=== PATIENT | female | born 1980 | race Caucasian/White ===

== ENCOUNTER 2018-12-04 14:56 | Observation (INO) | payer OTHER ==
[2018-12-04] MEDS ORDERED: NS 0.9% 1000 ML** 1,000 ML IV ONE (15:24)
--- NOTE | 2018-12-04 15:24 | ED ---
Neurological HPI - HPI Summary HPI Summary: This pt is a 37 y/o female presenting to [facility] c/o slurred speech. Pt reports she woke up feeling "weird" with no energy, feeling fatigued, and very drowsy. She notes she had gait disturbance, couldn't walk straight without holding on to things. Per nurse's note, pt didn't fall asleep until 0400 today and she woke up at 1220. She notes rare alcohol use. Pt reports taking her medications as usual which includes, Adderall, Alprazolam , lithium carbonate, fluoxetine, Seroquel. She last took Alprazolam last night. - History of Current Complaint Chief Complaint: EDWeakness Stated Complaint: BARELY COHERANT/CONFUSED PER PT BROTHER Hx Obtained From: Patient Onset/Duration: Started hours ago, Still Present Timing: Sudden Onset Current Severity: Moderate Pain Intensity: 0 - denies pain Pain Scale Used: 0-10 Numeric Character: Other: - slurred speech, gait disturbance, no energy Aggravating: Nothing Alleviating: Nothing Associated Signs and Symptoms: Positive: Unsteady Gait, Impaired Speech. Negative: Loss of Consciousness, Fever, Chest Pain, Shortness of Breath - Allergy/Home Medications Allergies/Adverse Reactions: Allergies Allergy/AdvReac Type Severity Reaction Status Date / Time bupropion [From Wellbutrin] Allergy Unknown Verified 12/04/18 15:06 Reaction Details deet Allergy Rash Uncoded 12/04/18 15:06 Home Medications: Home Medications ALPRAZolam [Alprazolam ER] 2 mg PO BID 12/04/18 [History Confirmed 12/04/18] Amphetamine MIXED SALTS TAB* [Adderall TAB*] 30 mg PO DAILY 12/04/18 [History Confirmed 12/04/18] Fluoxetine (Nf) Cap [Fluoxetine HCl] 80 mg PO DAILY 12/04/18 [History Confirmed 12/04/18] [place] Carbonate ER (NF) [[place] Carbonate ER] 300 mg PO BID 12/04/18 [ History Confirmed 12/04/18] QUEtiapine TAB* [Seroquel 100 MG *] 100 mg PO BEDTIME 12/04/18 [History Confirmed 12/04/18] PMH/Surg Hx/FS Hx/Imm Hx Endocrine/Hematology History: Denies: Hx Diabetes Cardiovascular History: Denies: Hx Hypertension Respiratory History: Reports: Hx Asthma Psychiatric History: Reports: Hx Anxiety, Hx Attention Deficit Hyperactivity Disorder Infectious Disease History: No Infectious Disease History: Denies: Traveled Outside the [place] in Last 30 Days - Family History Known Family History: Negative: Cardiac Disease, Hypertension, Diabetes - Social History Alcohol Use: Rare Substance Use Type: Reports: None Smoking Status (MU): Never Smoked Tobacco Review of Systems Positive: Fatigue. Negative: Fever, Chills Cardiovascular: Negative Respiratory: Negative Gastrointestinal: Negative Neurological: Other - POSITIVE: slurred speech, gait disturbance, drowsy All Other Systems Reviewed And Are Negative: Yes Physical Exam - Summary Physical Exam Summary: VITAL SIGNS: Reviewed. GENERAL: Patient is a well-developed and nourished female who is lying comfortable in the stretcher. Patient is not in any acute respiratory distress. HEAD AND FACE: No signs of trauma. No ecchymosis, hematomas or skull depressions. No sinus tenderness. EYES: PERRLA, EOMI x 2, No injected conjunctiva, no nystagmus. EARS: Hearing grossly intact. Ear canals and tympanic membranes are within normal limits. MOUTH: Oropharynx within normal limits. NECK: Supple, trachea is midline, no adenopathy, no JVD, no carotid bruit, no c- spine tenderness, neck with full ROM. CHEST: Symmetric, no tenderness at palpation LUNGS: Clear to auscultation bilaterally. No wheezing or crackles. CVS: Regular rate and rhythm, S1 and S2 present, no murmurs or gallops appreciated. ABDOMEN: Soft, non-tender. No signs of distention. No rebound no guarding, and no masses palpated. Bowel sounds are normal. EXTREMITIES: FROM in all major joints, no edema, no cyanosis or clubbing. NEURO: Alert and oriented x 3. Slurred speech. NIH is 1. SKIN: Dry and warm GCS: 15 Triage Information Reviewed: Yes Vital Signs On Initial Exam: Initial Vitals Temp Pulse Resp BP Pulse Ox 98.8 F 89 16 107/70 98 12/04/18 14:58 12/04/18 14:58 12/04/18 14:58 12/04/18 14:58 12/04/18 14:58 Vital Signs Reviewed: Yes Procedures - Sedation Patient Received Moderate/Deep Sedation with Procedure: No Diagnostics - Vital Signs Vital Signs Temp Pulse Resp BP Pulse Ox 12/04/18 14:58 98.8 F 89 16 107/70 98 - Laboratory Result Diagrams: 12/05/18 06:45 12/05/18 06:45 Lab Statement: Any lab studies that have been ordered have been reviewed, and results considered in the medical decision making process. - CT Brain CT CT Interpretation Completed By: Radiologist Summary of CT Findings: IMPRESSION: No evidence for gross acute infarct, mass effect or hemorrhage. Dr. Lara has reviewed this report. Head CTA CT Interpretation Completed By: Radiologist Summary of CT Findings: IMPRESSION: 1. Motion degraded exam with no large vessel occlusion or significant stenosis. 2. Biapical pulmonary consolidation and groundglass opacification. This could be better evaluated by dedicated chest CT. Correlate with clinical signs of pneumonia. 3. A disc osteophyte complex results in at least moderate spinal canal stenosis at C5-C6. Dr. Lara has reviewed this report. - EKG 15:10 Cardiac Rate: NL - at 78 bpm EKG Rhythm: Sinus Rhythm Summary of EKG Findings: An EKG at 15:10 shows normal sinus rhythm at [address] elevations. NIH Scale - NIH Scale Level of Consciousness: Alert/Keenly Responsive Ask Patient the Month and His/Her Age: Both Correct Ask Pt to Open/Close Eyes and Textile Machine Operator/Release Non-Paretic Hand: Both Correctly Best Gaze (Only Horizontal Eye Movement): Normal Visual Field Testing: No Visual Loss Facial Paresis-Pt to Smile & Close Eyes or Grimace Symmetry: Normal/Symmetrical Motor Function - Right Arm: No Drift-Holds 10 Seconds Motor Function - Left Arm: No Drift-Holds 10 Seconds Motor Function - Right Leg: No Drift-Holds 10 Seconds Motor Function - Left Leg: No Drift-Holds 10 Seconds Limb Ataxia-Must be out of Proportion to Weakness Present: Absent Sensory (Use Pinprick to Test Arms/Legs/Trunk/Face): Normal Best Language (Describe Picture, Name Items): No Aphasia Dysarthria (Read Several Words): Slurs Some Words Extinction and Inattention: No Abnormality Total Score: 1 Course/Dx - Course Assessment/Plan: Blood test results without any significant abnormality except for creatinine of 1. I discussed my physical exam and findings with Dr. Walker , neurologist, who recommends for the patient to get a head CT and CTA. Head CT is negative for an acute intracranial pathology. CTA is also negative for large vein occlusion. I discussed again the case with Dr. Walker and he recommends for the patient to be given aspirin and Plavix and admission to the hospitalist services. Patient is hemodynamically stable, alert and oriented 3. I discussed the case with Dr. Conrad from the hospitalist services who accepted the patient for admission. - Diagnoses Provider Diagnoses: CVA (cerebral vascular accident) - Physician Notifications Discussed Care Of Patient With: Ravi Walker Time Discussed With Above Provider: 18:00 Instructed by Provider To: Other - Discussed the case with Dr. Walker, neurologist, who recommends admission to the hospitalist and placing pt on aspirin and Plavix. [18:51] Discussed the case with Dr. Conrad, hospitalist, who accepted the pt for admission. Discharge ED - Sign-Out/Discharge Documenting (check all that apply): Patient Departure - Admit to [facility] - Discharge Plan Condition: Stable Disposition: ADMITTED TO [facility] - Billing Disposition and Condition Condition: STABLE Disposition: Admitted to [facility] - Attestation Statements Document Initiated by Steve: Yes Documenting Scribe: Adri Anna Provider For Whom Steve is Documenting (Include Credential): Deny Lara MD Scribe Attestation: I, Adri Anna, scribed for Deny Lara MD on 12/05/18 at 0843. Scribe Documentation Reviewed: Yes Provider Attestation: The documentation as recorded by the Adri wynne accurately reflects the service I personally performed and the decisions made by me, Deny Lara MD Status of Scribe Document: Viewed
[2018-12-04 16:03] LABS: ABS Eosinophils 0.2 10^3/ul (0-0.6); ABS Lymphocytes 1.6 10^3/ul (1.0-4.8); ABS Monocytes 0.5 10^3/ul (0-0.8); ABS Neutrophils 5.8 10^3/ul (1.5-7.7); Eosinophil % 2.5 %; Hematocrit 34 % (35-47); Hemoglobin 11.4 g/dL (12.0-16.0); Lymphocyte % 19.7 %; Mean Corpuscular HGB Conc 34 g/dL (31-36); Mean Corpuscular Hemoglobin 29 pg (27-31); Mean Corpuscular Volume 85 fL (80-97); Mean Platelet Volume 7.3 fL (7.4-10.4); Platelet Count 286 10^3/uL (150-450); Red Blood Count 4.01 10^6 /uL (3.70-4.87); Red Cell Distribution Width 15 % (10-15); White Blood Count 8.2 10^3/uL (3.5-10.8)
[2018-12-04 16:12] LABS: Activated Partial Thrombo Time 34.7 seconds (26.0-38.0); INR 1.03 (0.82-1.09)
[2018-12-04 16:25] LABS: HCG Pregnancy < 0.60 mIU/mL
[2018-12-04 16:30] LABS: Alcohol < 10 mg/dL (<10); Lithium 0.89 mmol/L (0.6-1.2)
[2018-12-04 16:32] LABS: ALT 12 U/L (7-52); AST 15 U/L (13-39); Albumin 3.8 g/dL (3.2-5.2); Albumin/Globulin Ratio 1.5 (1-3); Alkaline Phosphatase 55 U/L (34-104); Anion Gap 6 mmol/L (2-11); Blood Urea Nitrogen 13 mg/dL (6-24); CO2 Carbon Dioxide 26 mmol/L (22-32); Calcium 8.9 mg/dL (8.6-10.3); Chloride 107 mmol/L (101-111); Cholesterol 156 mg/dL; EGFR African American 74.7 (>60); EGFR Non-African American 61.7 (>60); Globulin 2.5 g/dL (2-4); Glucose 87 mg/dL (70-100); HDL Cholesterol 37.2 mg/dL; LDL Cholesterol 92 mg/dL; Potassium 3.5 mmol/L (3.5-5.0); Sodium 139 mmol/L (135-145); Total Protein 6.3 g/dL (6.4-8.9); Triglycerides 132 mg/dL
[2018-12-04] MEDS ORDERED: Iohexol 350* (CONTRAST) 500 ML MDV IV ONE (16:54)
[2018-12-04] MEDS ORDERED: Clopidogrel TAB* 75 MG PO ONE (18:14)
[2018-12-04] MEDS ORDERED: Aspirin 81 mg CHEW TAB* 81 MG TAB.CHEW PO ONE (18:14)
[2018-12-04] MEDS ORDERED: Acetaminophen TAB* 325 MG PO PRN (20:26)
[2018-12-04] MEDS: CMCS:Lithium Carbonate ER (NF) 300 MG TAB.ER PO SCH (23:23)
--- NOTE | 2018-12-05 00:12 | HP ---
CC: Dr. Lim; [facility] * HISTORY AND PHYSICAL: DATE OF ADMISSION: 12/04/18 PROVIDER: Gina De La O NP PRIMARY CARE PROVIDER: Dr. Lim. ATTENDING PHYSICIAN WHILE IN THE HOSPITAL: Dr. Luke Mcdermott * (dictated by Gina De La O NP). CHIEF COMPLAINT: Slurred speech. HISTORY OF PRESENT ILLNESS: Ms. Singh is a 37-year-old female with past medical history significant for asthma, panic attacks, depression, anxiety who presented to the emergency room with complaints of slurred speech. The patient reports that she took half a tablet of 300 mg of Seroquel last evening between 8 :30 and 9 p.m. She reports that when she woke this morning around 6 a.m. she had slurred speech. The patient reports that she feels that her slurred speech could be related to the use of her Seroquel. The patient denied any difficulty swallowing. She denied any weakness on one side. She denied any loss of vision , headache, or dizziness. Reports that her only associated symptom was slurred speech. While in the emergency room, the patient had routine lab work drawn. She had a CT of the head which was within normal limits. She had a CTA of the head and neck which showed motion degraded exam with no large vessel occlusion or significant stenosis, did show biapical pulmonary consolidation, ground-glass opacification. This could be evaluated with a CT, correlate for clinical signs of pneumonia. The patient's lithium level was also within normal limits. Due to the patient's complaint of slurred speech, Neurology was consulted and recommended a workup for a TIA. PAST MEDICAL HISTORY: Significant for asthma, exercise-induced; panic attacks; depression; anxiety; bipolar disorder. PAST SURGICAL HISTORY: None. MEDICATIONS: Home medications include: 1. Alprazolam 2 mg b.i.d. p.r.n. 2. Adderall 30 mg p.o. b.i.d. 3. Fluoxetine 20 mg p.o. b.i.d. 4. Seroquel 100 mg at bedtime. 5. [place] 300 mg p.o. b.i.d. ALLERGIES: DEET, BURPROPION. FAMILY HISTORY: She was adopted and her family history is unknown. SOCIAL HISTORY: She denies any tobacco, alcohol, or illicit drug use. She lives alone. Surrogate decision maker in the event she is unable to make her own decisions is her brother, Arnulfo, or her mom, Ember. She is a full code. REVIEW OF SYSTEMS: The patient denies any fever, chills, unintended weight loss , chest pain, or edema. She denies any cough, hemoptysis, or shortness of breath. No nausea, vomiting, diarrhea, abdominal pain, hematuria, or dysuria. She denies any focal weakness or sensory loss. Denies any visual complaints, headache, dizziness, dysphagia, arthralgias, myalgias, rashes, lesions, open sores, psychosis, or anxiety. The patient does complain of slurred speech that has since improved. PHYSICAL EXAMINATION GENERAL: At this time, Ms. Singh is a 37-year-old female. She is alert, oriented, resting on the stretcher in the emergency room. She is in no acute distress. VITAL SIGNS: Blood pressure 108/80, heart rate 88, respirations 13, O2 saturation 96% on room air, temperature 98.8. HEENT: Head is atraumatic, normocephalic. Eyes: EOMs are intact. Sclerae anicteric and not pale. Oral mucosa appeared to be moist. NECK: Supple. LUNGS: Clear to auscultation bilaterally. No wheezes, rales, or rhonchi. CARDIAC: S1, S2. Regular rate and rhythm. No murmurs, rubs, or gallops. ABDOMEN: Soft and nontender. Bowel sounds are present x4. EXTREMITIES: She is able to move all 4 extremities. There is no clubbing or cyanosis. Pedal pulses are +2 bilaterally. NEUROLOGIC: She is awake, alert, and oriented x3. Speech is clear. Thought process is intact. There are no gross focal deficits. Iigh-im-fjur is intact. Zlhqkr-xm-ftoc is intact. Pupils are equal and reactive to light. Tongue is midline. Smile is equal. There is no pronator drift. There is no leg drift. Push-pull is intact. Hand network systems engineer are equal. There are no gross neurological deficits. Speech is clear. SKIN: Intact. DIAGNOSTIC STUDIES/LAB DATA: WBCs are 8.2, RBCs 4.01, hemoglobin 11.4, hematocrit 34, platelet count 286. INR 1.03. Sodium 139, potassium 3.5, chloride 107, carbon dioxide 26, anion gap 6, BUN was 13, creatinine 1.00, glucose was 87. Lactic acid 0.9. Calcium 8.9. ASTs are 15, ALTs are 12, alkaline phosphatase of 55. Troponin 0.00. Albumin is 3.8, globulin is 2.5. Cholesterol was 156, LDL was 92, HDL was 37.2. [place] was 0.89. Serum alcohol was less than 10. She had a CT of the brain, radiologist's impression: No evidence of gross acute infarct, mass effect, or hemorrhage. She had a CTA of the brain which showed no large vessel occlusion or significant stenosis. Biapical pulmonary consolidation, ground-glass opacification. This could be better evaluated with a dedicated CT, correlate clinical signs for pneumonia. CT of the chest and an MRI of the brain are currently pending. She had an electrocardiogram which showed sinus rhythm at a rate of 78. ASSESSMENT AND PLAN: Ms. Singh is a 37-year-old female with past medical history significant for exercise-induced asthma, panic attacks, depression, anxiety who presented to the emergency room with complaints of slurred speech that started at 6 a.m. this morning. 1. Slurred Speech. Suspect this could be related her medication versus TIA . She was given Plavix 75 mg in the emergency room and aspirin 324 mg. I will continue her on aspirin 81 mg p.o. daily and Plavix 75 mg p.o. daily. The patient does have an LDL of 92. If she is ruled in for transient ischemic attack, we should consider starting a high-dose statin therapy as well for a goal of an LDL less than 70. I will get a transthoracic echocardiogram with bubble study. We also will monitor her on telemetry for any arrhythmias. MRI of the brain again is pending. She will be seen in consultation by Neurology by Dr. Walker. She will have neuro checks q.4 hours. The patient does not need PT or OT, as she has no deficits at this time. 2. Anxiety and depression. The patient should continue on her home medications , Adderall, fluoxetine, and lithium. I am going to hold her Seroquel as the patient does report that she feels her Seroquel is causing her to have slurred speech. 3. FEN. She can have regular diet. 4. Code status. She is full code. 5. DVT prophylaxis. Encourage ambulation. TIME SPENT: Time spent on this admission was 60 minutes, greater than half that time was spent at the bedside reviewing events leading thus far to her hospitalization, performing physical exam, and reviewing my plan of care. I have discussed this with my attending, Dr. Luke Mcdermott; he is in agreement with my plan. GINA DE LA O, CEMENT HANDLER [id number]/[facility] #: [id number] GALILEO
[2018-12-05 01:29] LABS: Urine Appearance Clear; Urine Bilirubin Negative (Negative); Urine Blood Negative (Negative); Urine Color Yellow; Urine Glucose Negative (Negative); Urine Ketones Negative (Negative); Urine Nitrite Negative (Negative); Urine Protein Negative (Negative); Urine Specific Gravity 1.021 (1.010-1.030); Urine Urobilinogen Negative (Negative)
[2018-12-05 01:49] LABS: Urine Benzodiazepine Screen Presumptive Positive (None Detect); Urine Opiates Screen None Detected (None Detect)
[2018-12-05 06:56] LABS: ABS Eosinophils 0.2 10^3/ul (0-0.6); ABS Lymphocytes 1.9 10^3/ul (1.0-4.8); ABS Monocytes 0.4 10^3/ul (0-0.8); ABS Neutrophils 4.1 10^3/ul (1.5-7.7); Eosinophil % 3.4 %; Hematocrit 32 % (35-47); Hemoglobin 10.7 g/dL (12.0-16.0); Lymphocyte % 27.9 %; Mean Corpuscular HGB Conc 34 g/dL (31-36); Mean Corpuscular Hemoglobin 29 pg (27-31); Mean Corpuscular Volume 85 fL (80-97); Mean Platelet Volume 7.4 fL (7.4-10.4); Platelet Count 263 10^3/uL (150-450); Red Blood Count 3.71 10^6 /uL (3.70-4.87); Red Cell Distribution Width 15 % (10-15); White Blood Count 6.6 10^3/uL (3.5-10.8)
[2018-12-05 07:19] LABS: BUN/Creatinine Ratio 10.9 (8-20); Calcium 8.2 mg/dL (8.6-10.3); EGFR African American 73.8 (>60); Potassium 3.7 mmol/L (3.5-5.0)
[2018-12-05 08:30] VITALS: BP 94/59
[2018-12-05] MEDS ORDERED: Amphetamine MIXED SALT TAB* 10 MG TAB PO SCH (09:00)
[2018-12-05] MEDS ORDERED: Clopidogrel TAB* 75 MG PO SCH (09:00)
[2018-12-05] MEDS ORDERED: Aspirin EC TAB* 81 MG TAB.EC PO SCH (09:00)
[2018-12-05] MEDS ORDERED: FLUoxetine CAP* 20 MG PO SCH (09:00)
[2018-12-05] MEDS ORDERED: Perflutren Lipid Microsphere* 3 ML VIAL ONE (10:28)
[2018-12-05] MEDS: CMCS:Lithium Carbonate ER (NF) 300 MG TAB.ER PO SCH (11:46)
--- NOTE | 2018-12-05 15:12 | ECHO ---
*[facility]* [place] [address] Fax #: [phone] Transthoracic Echocardiogram Patient: Sneha Singh : 1980 Study Date: 12/05/2018 Age: 37 Gender: F HR: 68 bpm Height: 64 in /162.6 cm BSA: 2.01 m^2 Weight: 212.6 lb /96.6 kg BMI: 36.6 kg/m^2 *Drill Grinder: * Skye Man RDCS RN *Referring Physician: * Gina De La O *Reading Physician: * Santo Fish MD Indications: TIA. History: Asthma. Risk factors: Morbidly obese. Conclusions Summary: - Left ventricle: The cavity size is mildly dilated, may be wnl when corrected for BSA. Wall thickness is normal. Systolic function is at the lower limits of normal. The estimated ejection fraction is 50-55%, closer to 50%. - Right ventricle: The cavity size is mildly to moderately dilated. Systolic function is mildly reduced. - Atrial septum: There is a patent foramen ovale. The bubble study is positive with bubbles seen in the left atrium with release of Valsalva on Image 84. - Aortic valve: There is trace to mild regurgitation. - Tricuspid valve: There is mild regurgitation. Study data: Transthoracic echocardiogram. Procedure: Transthoracic echocardiography was performed. The study was technically limited due to body habitus. Intravenous Definity 2 ml was administered to enhance imaging. A bubble study was performed using agitated normal saline on Images 83-85. Complete 2D, spectral Doppler, and color flow Doppler. Location: Bedside. Patient status: Observation. Patient room number: 435. No prior study is available for comparison. Rhythm: Normal sinus rhythm. Findings Left ventricle: The cavity size is mildly dilated, may be wnl when corrected for BSA. Wall thickness is normal. Systolic function is at the lower limits of normal. The estimated ejection fraction is 50-55%, closer to 50%. There is no consistent Doppler evidence of clinically significant diastolic dysfunction. Right ventricle: The cavity size is mildly to moderately dilated. Systolic function is mildly reduced. Left atrium: The atrium is normal in size. Right atrium: The atrium is normal in size. Atrial septum: There is a patent foramen ovale. The bubble study is positive with bubbles seen in the left atrium with release of Valsalva on Image 84. Mitral valve: The leaflets are mildly thickened. There is no evidence of stenosis. There is mild regurgitation. Aortic valve: Not well visualized. The valve is probably trileaflet. The leaflets are mildly thickened. There is no evidence of stenosis. There is trace to mild regurgitation. Tricuspid valve: The valve is structurally normal. There is no evidence of stenosis. There is mild regurgitation. Pulmonic valve: The valve is structurally normal. There is no evidence of stenosis. There is trace regurgitation. Aorta: Aortic root: The aortic root is appears normal. Ascending aorta: The ascending aorta is not dilated. Aortic arch: The aortic arch is not dilated. Pericardium: There is no pericardial effusion. Pulmonary arteries: The main pulmonary artery is normal-sized. Systolic pressure can not be accurately estimated. Systemic veins: Inferior vena cava: Not visualized. Measurements Left ventricle Value Ref Aortic valve Value Ref RASTA, LAX (H) 5.5 cm 3.8 - 5.2 Mayra diam, ED 1.9 cm ---- ESD, LAX (H) 4.1 cm 2.2 - 3.5 Peak v, S 1.4 m/sec ---- FS, LAX (L) 25 % 27 - 45 VTI, S 28.3 cm ---- PW, ED (H) 1.0 cm 0.6 - 0.9 Mean grad, S 5.0 mm Hg ---- IVS/PW, ED 0.94 Peak grad, S 8.0 mm Hg ---- E', lat mayra, TDI (L) 9.1 cm/sec >=10.0 LVOT/AV, VTI ratio 0.98 --- - E/e', lat mayra, 13 TDI Mitral valve Value Ref E', med mayra, TDI 10.8 cm/sec >=7.0 Peak E 1.17 m/sec --- - E/e', med mayra, 11 Peak A 0.91 m/sec ---- TDI Decel time 201 ms ---- E', avg, TDI 10.0 cm/sec PHT 85 ms ---- E/e', avg, TDI 12 <=14 Mean grad, D 3.0 mm Hg --- - Peak grad, D 10.0 mm Hg ---- LVOT Value Ref Peak E/A ratio 1.3 ---- Peak krissy, S 1.21 m/sec MVA, PHT 2.6 cm^2 ---- VTI, S 27.8 cm Peak grad, S 6 mm Hg Pulmonic valve Value Ref Mean grad, S 4 mm Hg Peak v, S 0.89 m/sec ---- Peak grad, S 3.0 mm Hg ---- Ventricular septum Value Ref IVS, ED 0.9 cm 0.6 - 0.9 Aortic root Value Ref Root diam 2.7 cm <3.7 Right ventricle Value Ref RASTA, LAX 3.4 cm Ascending aorta Value Ref RASTA minor ax, A4C (H) 4.4 cm 1.9 - 3.5 AAo AP diam, S 2.7 cm ---- mid Aortic arch Value Ref Left atrium Value Ref Arch diam 2.3 cm ---- AP dim, ES 3.50 cm 2.70 - 3.80 Decending aorta Value Ref ML dim, A4C 3.9 cm Emelina peak krissy 1.19 m/sec ---- SI dim, A4C 5.1 cm Vol/bsa, ES, 1-p 23 ml/m^2 11 - 40 A4C Vol/bsa, ES, A/L 24 ml/m^2 16 - 34 Right atrium Value Ref ML dim, ES, A4C 4.3 cm 2.6 - 4.4 SI dim, ES, A4C 5.1 cm 3.4 - 5.3 Estimated RAP 8 mm Hg Legend: (L) and (H) irma values outside specified reference range. Prepared and electronically signed by Santo Fish MD 12/05/2018 15:11
--- NOTE | 2018-12-06 00:24 | DS ---
CC: Dr. Clair Flowers; Dr. Anjum Durán - [facility]. * AMA DISCHARGE SUMMARY: DATE OF ADMISSION: 12/04/18 DATE OF AMA DISCHARGE: 12/05/18 PRIMARY CARE PROVIDER: Abhijeet Lyle of [facility]. ATTENDING PHYSICIAN: Dr. Nena Conrad * (DICTATED BY KARLA ANAYA NP) PRIMARY DIAGNOSES: 1. Transient slurred speech, suspect medication related. 2. Newly noted lung masses. SECONDARY DIAGNOSES: 1. Asthma. 2. Bipolar. 3. Depression. 4. Anxiety. STUDIES WHILE IN THE HOSPITAL: 1. EKG on 12/04/18 shows normal sinus rhythm with a rate of 78. QTc 482. No ischemic changes. No prior EKG for comparison. 2. Brain CT on 12/04/18 reads as no evidence of gross acute infarct, mass effect, or hemorrhage. 3. Head CTA on 12/04/18 reads as motion degraded exam with no large vessel occlusion or significant stenosis. Biapical pulmonary consolidation and ground- glass opacification. This could be better evaluated with dedicated chest CT. Correlate with clinical signs for pneumonia. A disk osteophyte complex results in at least moderate spinal canal stenosis at C5-C6. 4. Chest CT on 12/04/18 reads as mass like density in the right lung apex medially measuring at 19.1 x 24 x 16 mm. Another pleural based mass like density is seen in the upper lobe with mild surrounding ground-glass density measuring 12.3 x 8.6 x 13.4 mm. Mild emphysematous changes. Large bullae versus pneumatocele in the left lower lobe. Further evaluation with PET scan is recommended to rule out primary versus metastatic lesion and less likely pneumonia. 5. Brain MRI on 12/04/18 reads as no acute findings. No evidence of acute infarct of hemorrhage. 6. Transthoracic echocardiogram on 12/05/18 reads as the left ventricular cavity size is mildly dilated but may be within normal limits when corrected for BSA. Wall thickness was normal. Systolic function within lower limits of normal. The estimated ejection fraction is 50% to 55%, closer to 50%. Right ventricular cavity size is mildly to moderately dilated. Systolic function is mildly reduced. There is a patent foramen ovale. The bubble study is positive with bubbles seen in the left atrium with release of Valsalva. There is trace to mild aortic regurgitation. There is mild tricuspid regurgitation. HISTORY OF PRESENT ILLNESS AND HOSPITAL COURSE: Ms. Singh is a 37-year-old female with past medical history of asthma, bipolar, depression, and anxiety, who presented to the emergency room on 12/04/18 with complaints of slurred speech. Please see the history of physical by Gina De La O NP for complete summary of the events leading up to this hospitalization. In short, the patient reportedly took 150 mg of Seroquel the prior evening and when she woke on the day of presentation at 6 a.m. she had slurred speech. There were no other neurological deficits. In the emergency room, she had imaging as noted above. She is noted to be mildly anemic consistent with labs from 2017. Creatinine was very mildly elevated. [place] level was therapeutic. Urine toxicology positive for amphetamines and benzodiazepines correlating with prescribed medications. Due to her presenting symptoms, the patient was admitted by the hospitalist service to rule out TIA. Lipid panel showed triglycerides of 132, total cholesterol of 156, LDL of 92, and HDL of 37. The patient was given Plavix and aspirin in the emergency room and continued on these today. She additionally had an echo today with results as noted above. Though the results of this echo were not available at the time of the patient's departure today. Nonetheless, the patient had an uneventful night with no further episodes of any neurological deficits. Neurology was consulted but ultimately when I went to see the patient this afternoon, she was very adamant that she was leaving against medical advice and did not wish to stay for a consultation with Neurology. It seems most likely at this point that the patient's slurred speech was medication related to Seroquel, though ultimately UTI really cannot be ruled out at this point, especially in the presence of a patent foramen ovale. The more concerning findings were 2 lung masses noted on chest CT. The patient has no smoking history and does not know her family history as she is adopted. I did discuss these results with the patient and did discuss differential diagnosis with her. I did recommend that she stay at least another night here in the hospital for further workup and evaluation of these masses, though she is unwilling at this point. I spoke with her at length today and she is understanding of what these masses could represent. I was quite blunt with the patient and did discuss with her that this very well could represent a neoplastic process. I did recommend that the patient stay for an additional chest, abdomen, pelvis CT to rule out metastasis as well as consultation with Pulmonology, Oncology and possible biopsy of at least 1 of the masses, though at this point she is unwilling to stay. She reports that she would like her parents to be present for any of this workup and her parents are out of town at this point. The patient does have capacity to make her own medical decision. I did discuss with her risks of leaving the hospital without further workup and evaluation such as TIA, CVA, shortness of breath, respiratory distress, progressive metastatic disease and possibly . She was able to restate these risks to me and has good understanding of these risks as well as understanding of what followup she will need going forward. I have advised her that she will need to follow up with a primary care physician and likely follow up with Pulmonology and she is agreeable to this. Most recent vitals were as follows: Temp 98.3, heart rate 63, respiratory rate 16, oxygen saturation 99% on room air, blood pressure 94/59. DISCHARGE MEDICATIONS: New medication: 1. Aspirin 81 mg p.o. daily. Continued medications: 1. Alprazolam 2 mg p.o. b.i.d. 2. Adderall 30 mg p.o. daily. 3. Fluoxetine 80 mg p.o. daily. 4. [place] 300 mg p.o. b.i.d. 5. Seroquel 100 mg p.o. at bedtime. DISCHARGE PLAN: The patient can resume her usual activity level and diet. Medications were noted above. I have advised the patient that she should take a daily aspirin at this point as it is still unclear if she did have a TIA. She is agreeable to this. She can continue her other usual medications, though should use caution with Seroquel if this is causing some slurred speech and neurological deficits. She will need very close followup. She reports not having a primary care provider as her previous PCP, Dr. Lim retired recently. The patient is agreeable to following up with the [facility]. I did call the office and asked them to call the patient to schedule an appointment as soon as possible. I scheduled her an appointment with Dr. Mcguire on 12/10/18 at 6:30 a.m. At this point, I have sent out labs for alpha 1 antitrypsin and QuantiFERON and the results of these will need to be followed. I have also advised the patient that she will very likely need to see Pulmonology for further evaluation of these lung masses and possible biopsy , though I will leave the referral up to her PCP. The patient should return to the emergency room or nearest hospital for any worsening of symptoms, shortness of breath, lightheadedness, dizziness, chest discomfort, high fevers or chills, night sweats, loss of consciousness, or any other worrisome signs or symptoms. DISCHARGE CONDITION: Good. DISCHARGE DISPOSITION: Against medical advice. This is a summarized report of a complex medical history and hospital stay. For further details, please see the entire medical record. TIME SPENT: Approximately 50 minutes was spent on this discharge. KARLA ANAYA, [employer] [id number]/[facility] #: [id number] [place]
== END 2018-12-05 15:15 | disposition left against medical advice (07) ==
LOC: ED 14:56 → MEDTELE 22:26
PROVIDERS: ADMIT Internal Medicine; ATTEND Internal Medicine
DX: R47.81 Slurred speech (principal); R91.8 Other nonspecific abnormal finding of lung field; J45.909 Unspecified asthma, uncomplicated; F31.9 Bipolar disorder, unspecified; F41.9 Anxiety disorder, unspecified; Z79.82 Long term (current) use of aspirin; Z79.899 Other long term (current) drug therapy; F41.0 Panic disorder [episodic paroxysmal anxiety]; F90.9 Attention-deficit hyperactivity disorder, unspecified type
CPT/HCPCS: 36415; 70450; 70496; 70498; 70551; 71250; 80048; 80053; 80061; 80178; 80307; 80320; 81003; 83605; 84484; 84702; 85025; 85610; 85730; 86850; 86900; 86901; 93005; 93306; 99284; A9270-GY; C8929; G0378; G0480; Q9967